=== PATIENT | female | born 1945 | race Caucasian/White ===

== ENCOUNTER 2017-06-23 08:32 | Outpatient (CLI) | payer MEDICARE ==
--- NOTE | 2017-06-23 08:55 | RAD ---
PA AND LATERAL CHEST RADIOGRAPH: Date: 06-23-17 History: Dyspnea. Comparison: None available. FINDINGS: Cardiac silhouette and pulmonary vasculature are within normal limits. Calcified granuloma overlies t he right upper lobe. Minimal linear densities are seen at the left lung base and may be related to at electasis or scarring. Lungs are otherwise clear. Vascular calcifications are seen in a tortuous thor acic aorta. Degenerative changes are noted in the spine. IMPRESSION: No acute cardiopulmonary process. POS: [id number]
== END 2017-06-23 08:33 | disposition home or self-care (01) ==
LOC: RAD 08:32
PROVIDERS: ATTEND Internal Medicine Critical Care Medicine
DX: R06.00 Dyspnea, unspecified (principal)
CPT/HCPCS: 71046

== ENCOUNTER 2017-08-03 07:29 | Outpatient (CLI) | payer MEDICARE | END 2017-08-03 07:30 | disposition home or self-care (01) | LOC: CP 07:29 | PROVIDERS: ATTEND Internal Medicine Critical Care Medicine | DX: J44.9 Chronic obstructive pulmonary disease, unspecified (principal) | CPT/HCPCS: 94060; 94727; 94729 ==